=== PATIENT | male | born 1985 | race African-American/Black ===

== ENCOUNTER 2019-04-21 15:29 | Emergency (ER) | payer OTHER ==
[2019-04-21 15:36] VITALS: BP 142/88; PULSE 94; TEMP 98; BMI 27.6
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
== END 2019-04-21 17:00 | disposition home or self-care (01) ==
LOC: JERFT 15:29
DX: Z04.1 Encounter for examination and observation following transport accident (principal); V47.5XXA Car driver injured in collision with fixed or stationary object in traffic accident, initial encounter; Y92.414 Local residential or business street as the place of occurrence of the external cause; Y93.89 Activity, other specified; Y99.8 Other external cause status; F17.210 Nicotine dependence, cigarettes, uncomplicated
CPT/HCPCS: 99281-25